=== PATIENT | male | born 1950 | race African-American/Black ===

== ENCOUNTER 2022-05-14 01:28 | Inpatient (IN) | payer OTHER ==
[2022-05-14] MEDS ORDERED: Ondansetron PF 4 MG/2 ML Vial IVP PRN (04:56)
[2022-05-14] MEDS ORDERED: Dextrose 5% in Water 1,000 ML IV PRN (04:59)
[2022-05-14] MEDS ORDERED: Dextrose 50% Abboject 50 ML SYRINGE SLOW IVP PRN (04:59)
[2022-05-14] MEDS ORDERED: Sodium Chloride 0.9% 1,000 ML IV SCH (05:00)
[2022-05-14 06:06] LABS: Mean Corpuscular HGB CONC 33.9 g/dL (32.0-36.0); Mean Corpuscular Hemoglobin 31.2 pg (27.0-31.0); Mean Platelet Volume 7.3 fL (7.4-10.4); Platelet Count 312 10x3/uL (130-400); RBC Distribution Width 12.1 % (11.5-14.5); Red Blood Cell (RBC) Count 4.16 mill/uL (4.70-6.10); White Blood Cell (WBC) Count 8.3 10x3/uL (4.8-10.8)
[2022-05-14 06:09] LABS: ALT (SGPT) 16 U/L (8-55); AST (SGOT) 22 U/L (5-34); Albumin 4.3 g/dL (3.4-4.8); Alkaline Phosphatase 85 U/L (40-110); Anion Gap 13 mmol/L (10-20); BUN (Urea Nitrogen) 14 mg/dL (8.4-25.7); Bilirubin, Total 0.5 mg/dL (0.2-1.2); Calc. Creatinine Clearance 0 mL/min (70-130); Calcium 9.2 mg/dL (7.8-10.44); Carbon Dioxide 25 mmol/L (23-31); Chloride 105 mmol/L (98-107); Estimated GFR 62; Glucose 122 mg/dL (83-110); Potassium 3.6 mmol/L (3.5-5.1); Protein, Total 7.3 g/dL (5.8-8.1); Sodium 139 mmol/L (136-145)
[2022-05-14 06:26] VITALS: BMI 31.8
[2022-05-14 06:35] LABS: Eosinophils 1 % (0-10); Lymphocytes 17 % (21-51); MDiff Complete? YES; Monocytes 5 % (0-10); Neutrophil 77 % (42-75)
[2022-05-14] MEDS: Pantoprazole 40 MG VIAL IVP SCH (08:33)
[2022-05-14] MEDS: Morphine 2 MG/ML VIAL SLOW IVP PRN ×3 (08:36→17:17)
[2022-05-14] MEDS ORDERED: LORazepam 2 MG/ML SYR.(CARPUJECT) IVP PRN (08:39)
[2022-05-14] MEDS ORDERED: Acetaminophen 650 MG Suppository PR PRN (08:39)
[2022-05-14] MEDS: Lorazepam 2 MG/ML VIAL SLOW IVP PRN ×2 (08:50→17:18)
[2022-05-14] MEDS ORDERED: HumaLOG 300 UNITS/3 ML VIAL SC PRN (08:59)
[2022-05-14] MEDS: Sodium Chloride 0.9% 1,000 ML IV SCH ×2 (10:14→12:40)
[2022-05-14] MEDS ORDERED: MD-Gastroview 120 ML BOT ONE (12:02)
[2022-05-14] MEDS ORDERED: cloNIDine 0.1mg/24 Hour PATCH TD SCH (13:45)
[2022-05-14] MEDS: Lactated Ringer's 1,000 ML IV SCH ×2 (17:18→22:28)
[2022-05-14] MEDS: guaiFENesin 200 MG TAB PO SCH (20:02)
[2022-05-14] MEDS ORDERED: Atorvastatin Calcium 40 MG TAB PO SCH (21:00)
[2022-05-14] MEDS ORDERED: Azelastine 137 MCG/Spray 30 ML NS SCH (21:00)
[2022-05-15] MEDS: Lactated Ringer's 1,000 ML IV SCH (00:22)
[2022-05-15] MEDS: Pantoprazole 40 MG VIAL IVP SCH (07:01)
[2022-05-15 08:15] LABS: #Eosinphils 0.2 thou/uL (0.0-0.7); #Lymphocytes 2.4 thou/uL (1.20-3.40); #Monocytes 0.8 thou/uL (0.11-0.59); #Neutrophils 3.8 thou/uL (1.40-6.50); %Basophils 0.5 % (0.0-1.0); %Eosinophils 2.3 % (0.0-10.0); %Monocytes 10.4 % (0.0-10.0); %Neutrophils 52.8 % (42.0-75.0); Hemoglobin 11.6 g/dL (14.0-18.0); Mean Corpuscular HGB CONC 34.5 g/dL (32.0-36.0); Mean Corpuscular Hemoglobin 31.7 pg (27.0-31.0); Mean Corpuscular Volume 91.9 fl (78.0-98.0); Mean Platelet Volume 7.5 fL (7.4-10.4); Platelet Count 260 10x3/uL (130-400); RBC Distribution Width 12.1 % (11.5-14.5); Red Blood Cell (RBC) Count 3.65 mill/uL (4.70-6.10); White Blood Cell (WBC) Count 7.2 10x3/uL (4.8-10.8)
[2022-05-15 08:31] LABS: Anion Gap 11 mmol/L (10-20); BUN (Urea Nitrogen) 13 mg/dL (8.4-25.7); Calc. Creatinine Clearance 93 mL/min (70-130); Carbon Dioxide 26 mmol/L (23-31); Chloride 106 mmol/L (98-107); Estimated GFR 67; Glucose 100 mg/dL (83-110); Potassium 3.3 mmol/L (3.5-5.1); Sodium 140 mmol/L (136-145)
[2022-05-15] MEDS ORDERED: Fluticasone Propionate Nasal Spray 16 gm Bottle NASAL SCH (09:00)
[2022-05-15] MEDS ORDERED: Cyanocobalamin (Vitamin B-12) 1,000 MCG TAB PO SCH (09:00)
[2022-05-15] MEDS ORDERED: Folic Acid 1 MG TAB PO SCH (09:00)
[2022-05-15] MEDS ORDERED: Cholecalciferol 1,000 UNITS (25 MCG) TAB PO SCH (09:00)
[2022-05-15] MEDS ORDERED: Potassium Chloride 20 MEQ in Premix Bag 1 BAG IVPB SCH (09:30)
[2022-05-15] MEDS: Amlodipine 5 MG TAB PO SCH (09:41)
[2022-05-15] MEDS: guaiFENesin 200 MG TAB PO SCH ×2 (09:43→21:52)
[2022-05-15] MEDS: Sertraline 100 MG TAB PO SCH (09:43)
[2022-05-15] MEDS: QUEtiapine 200 MG TAB PO SCH (09:43)
[2022-05-15] MEDS: Multivit, Therapeutic 1 TAB PO SCH (09:43)
[2022-05-15] MEDS: Morphine 2 MG/ML VIAL SLOW IVP PRN (10:45)
[2022-05-15] MEDS: Potassium Chloride 20 MEQ in Lactated Ringer's 1,000 ML IV SCH (15:32)
[2022-05-15] MEDS: Lorazepam 2 MG/ML VIAL SLOW IVP PRN (22:06)
[2022-05-16] MEDS: Potassium Chloride 20 MEQ in Lactated Ringer's 1,000 ML IV SCH ×3 (01:35→18:50)
[2022-05-16] MEDS: Morphine 2 MG/ML VIAL SLOW IVP PRN (04:31)
[2022-05-16 07:27] LABS: #Eosinphils 0.2 thou/uL (0.0-0.7); #Lymphocytes 2.6 thou/uL (1.20-3.40); #Monocytes 0.7 thou/uL (0.11-0.59); #Neutrophils 2.1 thou/uL (1.40-6.50); %Basophils 0.7 % (0.0-1.0); %Eosinophils 3.7 % (0.0-10.0); %Lymphocytes 46.3 % (21.0-51.0); %Monocytes 11.8 % (0.0-10.0); %Neutrophils 37.3 % (42.0-75.0); Hemoglobin 11.4 g/dL (14.0-18.0); Mean Corpuscular HGB CONC 34.6 g/dL (32.0-36.0); Mean Corpuscular Volume 92.4 fl (78.0-98.0); Mean Platelet Volume 7.5 fL (7.4-10.4); Platelet Count 266 10x3/uL (130-400); Red Blood Cell (RBC) Count 3.57 mill/uL (4.70-6.10); White Blood Cell (WBC) Count 5.7 10x3/uL (4.8-10.8)
[2022-05-16 07:56] LABS: ALT (SGPT) 15 U/L (8-55); AST (SGOT) 19 U/L (5-34); Albumin 3.5 g/dL (3.4-4.8); Alkaline Phosphatase 74 U/L (40-110); Anion Gap 12 mmol/L (10-20); BUN (Urea Nitrogen) 11 mg/dL (8.4-25.7); Bilirubin, Total 0.6 mg/dL (0.2-1.2); Calc. Creatinine Clearance 96 mL/min (70-130); Calcium 8.8 mg/dL (7.8-10.44); Carbon Dioxide 25 mmol/L (23-31); Chloride 106 mmol/L (98-107); Estimated GFR 70; Globulin 2.8 g/dL (2.4-3.5); Glucose 102 mg/dL (83-110); Magnesium 1.9 mg/dL (1.6-2.6); Potassium 3.5 mmol/L (3.5-5.1); Protein, Total 6.3 g/dL (5.8-8.1); Sodium 139 mmol/L (136-145)
[2022-05-16] MEDS: Amlodipine 5 MG TAB PO SCH (09:53)
[2022-05-16] MEDS: Sertraline 100 MG TAB PO SCH (09:54)
[2022-05-16] MEDS: guaiFENesin 200 MG TAB PO SCH ×2 (09:54→22:40)
[2022-05-16] MEDS: QUEtiapine 200 MG TAB PO SCH (09:54)
[2022-05-16] MEDS: Multivit, Therapeutic 1 TAB PO SCH (09:54)
[2022-05-16] MEDS: Pantoprazole 40 MG VIAL IVP SCH (09:55)
[2022-05-17] MEDS ORDERED: Calcium Carbonate 500 MG ChewTAB PO PRN (05:08)
[2022-05-17 06:13] LABS: #Basophils 0.1 thou/uL (0.0-0.2); #Eosinphils 0.2 thou/uL (0.0-0.7); #Lymphocytes 2.8 thou/uL (1.20-3.40); #Monocytes 0.7 thou/uL (0.11-0.59); #Neutrophils 3.4 thou/uL (1.40-6.50); %Eosinophils 3.3 % (0.0-10.0); %Lymphocytes 38.7 % (21.0-51.0); %Monocytes 9.9 % (0.0-10.0); %Neutrophils 47.2 % (42.0-75.0); Hemoglobin 12.3 g/dL (14.0-18.0); Mean Corpuscular HGB CONC 33.6 g/dL (32.0-36.0); Mean Corpuscular Hemoglobin 30.8 pg (27.0-31.0); Mean Corpuscular Volume 91.7 fl (78.0-98.0); Mean Platelet Volume 7.4 fL (7.4-10.4); Platelet Count 286 10x3/uL (130-400); White Blood Cell (WBC) Count 7.2 10x3/uL (4.8-10.8)
[2022-05-17 06:18] LABS: Anion Gap 10 mmol/L (10-20); BUN (Urea Nitrogen) 9 mg/dL (8.4-25.7); Calc. Creatinine Clearance 94 mL/min (70-130); Calcium 9.8 mg/dL (7.8-10.44); Carbon Dioxide 29 mmol/L (23-31); Chloride 104 mmol/L (98-107); Estimated GFR 68; Glucose 122 mg/dL (83-110); Potassium 4.1 mmol/L (3.5-5.1); Sodium 139 mmol/L (136-145)
[2022-05-17] MEDS ORDERED: FLU VACC QS2022-23(65YR UP)/PF 240 MCG/0.7 ML SYRINGE IM ONE (06:45)
[2022-05-17] MEDS: Amlodipine 5 MG TAB PO SCH (06:46)
[2022-05-17] MEDS: Potassium Chloride 20 MEQ in Lactated Ringer's 1,000 ML IV SCH ×2 (06:48→15:46)
[2022-05-17] MEDS: Morphine 2 MG/ML VIAL SLOW IVP PRN (06:49)
[2022-05-17] MEDS: Sertraline 100 MG TAB PO SCH (08:58)
[2022-05-17] MEDS: Multivit, Therapeutic 1 TAB PO SCH (08:58)
[2022-05-17] MEDS: guaiFENesin 200 MG TAB PO SCH (08:58)
[2022-05-17] MEDS: Pantoprazole 40 MG VIAL IVP SCH (08:59)
[2022-05-17] MEDS ORDERED: Milk Of Magnesia 30 ML UDCUP PO SCH (14:45)
[2022-05-17 16:37] VITALS: BP 150/72; TEMP 98
[2022-05-17] MEDS ORDERED: QUEtiapine 200 MG TAB PO SCH (21:00)
[2022-05-17] MEDS ORDERED: Metamucil PACK PO SCH (21:00)
[2022-05-17] MEDS ORDERED: Polyethylene Glycol 3350 17 GM Packet PO SCH (21:00)
== END 2022-05-17 16:31 | disposition home or self-care (01) | DRG 390 ==
LOC: T4-B 01:28
PROVIDERS: ADMIT Internal Medicine; ATTEND Hospitalist
DX: K56.600 Partial intestinal obstruction, unspecified as to cause (principal); K21.9 Gastro-esophageal reflux disease without esophagitis; J45.909 Unspecified asthma, uncomplicated; M19.90 Unspecified osteoarthritis, unspecified site; F41.9 Anxiety disorder, unspecified; F31.9 Bipolar disorder, unspecified; F17.210 Nicotine dependence, cigarettes, uncomplicated; E87.6 Hypokalemia; K59.00 Constipation, unspecified; Z79.899 Other long term (current) drug therapy; Z79.84 Long term (current) use of oral hypoglycemic drugs
CPT/HCPCS: 36415; 36416; 74019; 74250; 80048; 80053; 83735; 85025; C9113; J1650; J2060; J2272; J3480; J7050; J7120; Q9963